=== PATIENT | female | born 1955 | race Caucasian/White ===

== ENCOUNTER → 2016-12-14 | Day surgery (SDC) | payer OTHER ==
[~2016-12-14] MED LIST: ACETAMINOPHEN 1000 MG/100 ML VIAL IV ONE; ATOR10; BUPIVACAINE/EPINEPHRINE 0.5% PF 10 ML VIAL ONE; IRON18TA; KETOROLAC TROMETHAMINE 30 MG/ML (IVP) VIAL ONE; LIDOCAINE 1%/EPINEPHrine 1:100,000 SOLN 20 ML VIAL ONE; ONDANSETRON HCL 4 MG/2 ML VIAL IV PUSH ONE; PROPOFOL 500 MG/50 ML BTL IV ONE; ceFAZolin 2 GM PREMIX 50 ML ONE
--- NOTE | 2016-12-15 21:30 | MP ---
cc: ALIRIO FIERRO DATE OF SURGERY: 12/14/2016 PREOPERATIVE DIAGNOSIS: Microcalcifications left breast. POSTOPERATIVE DIAGNOSIS: Microcalcifications left breast. OPERATION: Needle localized left breast biopsy. SURGEON: Serene Fierro MD. CERTIFIED FLIGHT INSTRUCTOR: Francisco Schwartz. ANESTHESIA: Local with TIVA. OPERATIVE FINDINGS The patient was found to have the area of microcalcifications in the left breast on routine mammography. The calcifications had increased in size in number over the last six months. OPERATIVE PROCEDURE The patient was brought to the operating room after having undergone needle localization of these microcalcification in the left breast. After adequate sedation had been achieved, the left breast was prepped and draped in the usual sterile fashion. 0.5% Marcaine with epinephrine was used to infiltrate the skin for local anesthesia. A circumareolar incision was made carried down sharply through the subcutaneous tissue with the cautery being used for hemostasis. Incision was deepened into the breast parenchyma where the guidewire was grasped with a hemostat then amputated at the level of the skin. The guidewire was brought within the wound and using two Allis clamps the tissue was grasped and then the core of tissue was dissected free from around the guidewire. The specimen was marked with superior and lateral margins and sent for specimen mammography. The mammogram revealed the presence of the microcalcifications in question. Hemostasis was strictly assured after which the subcutaneous tissue and skin were closed with interrupted 4-0 PDS subcuticular stitches. Steri-Strips were applied. The patient was then awakened and taken from the operating room in satisfactory condition, having tolerated the procedure without problem. Estimated blood loss was less than 5 mL. The instrument, sponge, needle counts reported being correct x2 at the end of the procedure. Alirio Fierro MD Kalin/JAZMINE /2:49 PM /9:20 PM
== END | disposition home or self-care (01) ==
LOC: ESDC 09:44
PROVIDERS: ATTEND Surgery
DX: R92.0 Mammographic microcalcification found on diagnostic imaging of breast (principal)
CPT/HCPCS: 00400; 19125; 88307; J0131; J0690; J1885; J2405; J3010; 88361

== ENCOUNTER → 2016-12-21 | Day surgery (SDC) | payer OTHER ==
[~2016-12-21] MED LIST changes: +BUPIVACAINE/EPINEPHRINE 0.5% 50 ML VIAL ONE; -BUPIVACAINE/EPINEPHRINE 0.5% PF 10 ML VIAL ONE; +ISOSULFAN BLUE 50 MG/5 ML VIAL SQ ONE; +KETOROLAC TROMETHAMINE 30 MG/ML (IVP) VIAL IV PUSH ONE; -KETOROLAC TROMETHAMINE 30 MG/ML (IVP) VIAL ONE; +LACTATED RINGER'S 1000 ML INJ 1,000 ML ONE; -LIDOCAINE 1%/EPINEPHrine 1:100,000 SOLN 20 ML VIAL ONE; +PROPOFOL 100 MG/10 ML INJ IV ONE; -PROPOFOL 500 MG/50 ML BTL IV ONE
--- NOTE | 2016-12-22 11:28 | MP ---
cc: GAYLA FIERRO DATE OF SURGERY 12/21/2016 PREOPERATIVE DIAGNOSIS Carcinoma of the left breast. POSTOPERATIVE DIAGNOSIS Carcinoma of the left breast. PROCEDURE Wide excision of carcinoma left breast with sentinel lymph node biopsy. SURGEON MD Torres ANESTHESIA General. OPERATIVE PROCEDURE The patient was brought to the operating room after having undergone lymphoscintigraphy for identification of a sentinel node in the left axilla. After satisfactory sedation by Anesthesia, the left breast and axilla were prepped and draped in the usual sterile fashion. Using the markings made by Radiology, the radioactivity at its highest count was identified in the axilla using the Navigator probe. 0.5% Marcaine with epinephrine used to infiltrate the skin for local anesthesia. A transverse incision was made over the highest counts and carried down sharply through the subcutaneous tissue with cautery being used for hemostasis. The incision was deepened by blunt dissection into the axilla proper where the highest count was again identified. That area was grasped with an Allis clamp and it was dissected free with the counts being frequently checked and found to be continually high. Once the sentinel node had been identified and removed, the counts were seen to be very high and the remainder of the axilla was seen to have background counts only. The sentinel node was marked with a 2-0 silk and identified as sentinel node and sent for permanent pathology. Hemostasis was strictly assured after which the subcutaneous tissue was closed with interrupted 3-0 Vicryl suture and the skin closed with interrupted 4-0 PDS subcuticular stitch. Attention was then turned to the breast where the skin was again anesthetized and a sterile pen was used to sergey an elliptical skin incision around the previous circumareolar incision in the upper outer quadrant of the breast. The new circumareolar incision was made sharply and carried down through the subcutaneous tissue with cautery being used for hemostasis. The skin and the seroma cavity were grasped and the area dissected free with attention primarily directed to the medial and inferior areas which had been positive margins in the first biopsy. After the dissection was completed, the specimen was marked with medial and inferior margins indicated by long and short suture respectively and sent for permanent pathology. The area was made hemostatic after which the skin was closed with interrupted 4-0 PDS subcuticular stitches. Steri-Strips were applied to both dressings and further Marcaine was infiltrated into the breast cavity. The patient was then awakened, taken from the operating room in satisfactory condition having tolerated the procedure without problem. Estimated blood loss was less than 10 mL. The instrument count, sponge count and needle counts were reported as being correct x 2 at the end of the procedure. MD ARACELI Watson/JOHN /3:48 PM /11:22 AM
== END | disposition home or self-care (01) ==
LOC: ESDC 07:27
PROVIDERS: ATTEND Surgery
DX: C50.912 Malignant neoplasm of unspecified site of left female breast (principal)
CPT/HCPCS: 00400; 01610; 19301; 38525; 88307; J0131; J0690; J1885; J2405; J3010; J7120; Q9968